=== PATIENT | female | born 1980 | race Caucasian/White ===

== ENCOUNTER 2018-12-12 10:54 | Emergency (ER) | payer OTHER ==
[2018-12-12] MEDS ORDERED: LET GEL TOPICAL 1 EA SYR TP ONE (11:05)
--- NOTE | 2018-12-12 11:21 | EDPHY ---
General Time Seen by Provider: 12/12/18 11:04 Narrative: CLINICAL IMPRESSION: Forehead laceration ASSESSMENT/PLAN: 38-year-old female presents to the emergency department with a laceration to the forehead sustained when she tripped caring a garden box and struck her head into the corner of the box. No loss of consciousness, altered mental status and she has a nonfocal neurological exam on arrival. Tetanus up-to-date. She has a 3 cm horizontally oriented laceration just inside the hairline of the forehead that was repaired with sutures as per chart notes below. Wound care discussed, sinus symptoms of infection reviewed, warning signs return to ED sooner alignment discharge. DIFFERENTIAL DIAGNOSIS: includes but not limited to laceration of tendon or vascular structure, underlying fracture, laceration with retained FB ED PROCEDURES: Laceration Repair Verbal consent obtained by patient. Risks discussed, including but not limited to infection, pain, retained foreign body, need for additional repair, poor cosmetic result, tendon damage, nerve damage, poor wound healing, vascular damage. Alternatives to repair discussed. Burns protocol used to establish correct patient, procedure, equipment, applications support specialist, and site. Anesthesia obtained by local infiltration. Anesthetized with 0.5% bupivacaine with epinephrine. Laceration location forehead, length 3 cm, depth 2 mm, Repair type simple. Patient was prepped and draped in usual sterile fashion. Hemostasis achieved with direct pressure. Wound explored through full range of motion and entire depth of wound probed and visualized with gloved finger. No suspicion for nerve damage, tendon damage, underlying fracture, vascular damage, foreign body, or contamination. Area was cleansed with Shur-Clens and irrigated with sterile saline as per protocol. No foreign body or material removed. Repair method 4 0 Prolene simple interrupted sutures. Seven sutures placed. Well aligned, closely approximated. wound was dressed with bacitracin. Patient tolerated well with no immediate complications. Wound care: Clean and dry x 24 hours, gently clean with soap and water, cover with topical antibiotic ointment/bandage. Suture/Staple removal: 10-14 Days CHIEF COMPLAINT: Laceration HPI: 38-year-old otherwise healthy female presents to the emergency department with an acute forehead laceration. Patient reports she was pushing a garden box in her backyard when she slipped and fell into the edge of the box striking her forehead. No loss of consciousness. She reports a mild headache but does not want medication for this. No associated dizziness, vertigo, altered mental status or vision changes. Tetanus reported up-to-date. No neck pain upper extremity weakness or numbness and no other injuries. PAST MEDICAL HISTORY: None reported Pertinent Past Surgical History: None reported Social History: Tetanus up-to-date REVIEW OF SYSTEMS: All other systems negative Constitutional: No fever, no chills Musculoskeletal: No deformity, no joint pain Skin: Laceration to forehead Neurological: No sensory loss or weakness, 2 point discrimination intact. PHYSICAL EXAM: General Appearance: Alert, oriented, appropriate for age, cooperative, NAD, well hydrated, non-toxic appearing, VSS, no hypoxia. Neurological: Alert and oriented x 3, no focal neurological deficits Skin: 3 cm laceration, horizontally oriented, right upper forehead just inside the hairline Musculoskeletal: Full range of motion of neck, bilateral upper extremities, no reported paresthesias. MEDICAL DECISION MAKING: Patient was seen independently. Secondary supervising physician at time of evaluation was Dr. Garcias. Diagnosis: Forehead laceration . New, requires workup Summary: See assessment and plan for summary of ED visit Patient Progress improved, stable for discharge. - History Smoking Status: Never smoked - Objective Vital Signs: Initial Vital Signs Temperature (C) 36.8 C 12/12/18 11:00 Heart Rate 66 12/12/18 11:00 Respiratory Rate 18 12/12/18 11:00 Blood Pressure 107/81 H 12/12/18 11:00 O2 Sat (%) 100 12/12/18 11:00 O2 Delivery Mode Room Air Allergies/Adverse Reactions: No Known Allergies Allergy (Unverified 12/12/18 11:00) Home Medications: Medication Instructions Recorded NK [No Known Home Meds] 12/12/18 Medications Given: Discontinued Medications Tetracaine/Epinephrine/Lidocaine (Let Gel Topical) 1 ea TP EDNOW ONE Stop: 12/12/18 11:06 Last Admin: 12/12/18 11:19 Dose: 1 ea Departure - Departure Disposition: Home, Routine, Self-Care Clinical Impression: Scalp laceration Qualifiers: Encounter type: initial encounter Qualified Code(s): S01.01XA - Laceration without foreign body of scalp, initial encounter Condition: Good Instructions: Laceration (ED) Additional Instructions: DISCHARGE INSTRUCTIONS FROM YOUR DOCTOR Thank you for visiting our emergency department today. You were treated by a physician pediatric physical therapy assistant today and your case was reviewed with our ED Attending physician. Please keep in mind that discharge from the emergency department does not mean that there is nothing wrong - it simply means that we have not identified an emergency condition that requires further evaluation or treatment in the hospital. You should always plan to follow up with primary care for re- evaluation of your condition in the next 2-3 days. If you have been referred to a specialist, please call as soon as possible (today or tomorrow) to schedule your follow up appointment at the appropriate time. PLEASE HAVE SUTURES/BIPIN REMOVED IN 10-14 DAYS. YOU CAN RETURN TO THE EMERGENCY DEPARTMENT OR YOUR PRIMARY CARE FOR SUTURE/STAPLE REMOVAL. AVOID SUBMERGING SUTURES/BIPIN UNDERWATER FOR PROLONGED PERIOD OF TIME UNTIL REMOVED. KEEP WOUND CLEAN AND DRY, COVER WITH ANTIBIOTIC OINTMENT AND BAND-AID. RETURN TO EMERGENCY DEPARTMENT FOR REDNESS, SWELLING, DISCHARGE, WARMTH TO THE SKIN, OR ANY OTHER CONCERNS FOR INFECTION. People present with illnesses and injuries in different ways, and it is always possible that we have missed something. You may always return for re-evaluation if symptoms worsen or if they are not improving or if you develop new/different symptoms. Again, thank you for choosing our emergency department. We hope that you feel better. Referrals: Ilana Tse MD [Primary Care Provider] - As per Instructions
[2018-12-12 13:14] VITALS: BP 124/85
== END 2018-12-12 13:13 | disposition home or self-care (01) ==
PROC: 0HQ0XZZ Repair Scalp Skin, External Approach (ICD-10-PCS; principal; 2018-12-12)
DX: S01.01XA Laceration without foreign body of scalp, initial encounter (principal); W22.8XXA Striking against or struck by other objects, initial encounter; Y92.007 Garden or yard of unspecified non-institutional (private) residence as the place of occurrence of the external cause; Y93.H2 Activity, gardening and landscaping